=== PATIENT | female | born 1990 | race African-American/Black ===

== ENCOUNTER 2016-12-16 15:34 | Emergency (ER) | payer BC, MEDICAID, OTHER ==
[~2016-12-16 15:34] MED LIST: OXYC-360 PO; PREN0.01 PO
--- NOTE | 2016-12-16 16:26 | PD ---
HPI Chief Complaint Pelvic pain, intermittent 1 day 20 weeks and 4 days Date Seen: Dec 16, 2016 Time Seen: 16:15 Travel History International Travel<30 Days: No Contact w/Intl Traveler<30Days: No Known Affected Area: No History of Present Illness HPI Pt is a 26 yo at 20 weeks and 4 days. EDC 05-01-2017. Prior care in [place], has recently moved back to the area and not yet re- established care. Reports brief bilateral low abdominal pain last night. Resolved spontaneously after 1 minute. Pain returned again this afternoon, again resolved after about 1 minute. No abdominalor pelvic pain at this time. No vaginal leaking or bleeding Reports active movements. Weeks Gestation: 20 Para: 1 : 2 History Obstetric History Obstetric History Prior term 6 years ago. Past Surgical History Surgical History: No Previous Surgery Family History Family History: Negative Social History Alcohol Use: No Tobacco Use: No Substance Abuse: No Allergies-Medications (Allergen,Severity, Reaction): Coded Allergies: No Known Allergies (Verified , 06/09/10) Home Meds Reported Medications Oxycodone/Acetaminophen (Percocet) 5 Mg/325 Mg Tab, 1 - 2 TAB PO Q4HPRN, #30 FOR PAIN 06/11/10 Multivit/Min/Fol Ac/Iron/Pren ( Vit ( Plus)) Tab, 1 TAB PO DAILY, #30 06/09/10 Review of Systems Except as stated in HPI: all other systems reviewed are Neg Physical Exam Narrative GENERAL: Well-nourished, well-developed patient. SKIN: Warm and dry. HEAD: Normocephalic and atraumatic. EYES: No scleral icterus. No injection or drainage. ENT: No nasal drainage noted. Mucous membranes pink. Airway patent. NECK: Supple, trachea midline. No JVD. CARDIOVASCULAR: Regular rate and rhythm without murmurs, gallops, or rubs. RESPIRATORY: Breath sounds equal bilaterally. No accessory muscle use. BREASTS: Bilateral exam showed no masses , no retractions, no nipple discharge. ABDOMEN/GI: Abdomen soft, non-tender, bowel sounds present, no rebound, no guarding Gravid to [20] weeks size GENITOURINARY: External Genitalia: intact and normal in appearance BUS glands: [-] Cervix: [firm] Dilatation: [closed] Effacement: [uneffaced] Station: [] Presentation: [-] Membranes: [intact] Uterine Contractions: [none] FHT's: Category: [-] Baseline: [150s] Reactive: [-] Variability: [-] Decels: [-] EXTREMITIES: No cyanosis or edema. BACK: Nontender without obvious deformity. No CVA tenderness. NEUROLOGICAL: Awake and alert. Motor and sensory grossly within normal limits. Five out of 5 muscle strength in all muscle groups. Normal speech. Data Data Vital Signs Reviewed: Yes MDM Interpretation(s) Round ligament pain. UA wnl Plan 20 weeks and 4 days IUP Round ligament pain. Urine SG 1.030 Advised liberal fluids, Tylenol PRN for pain. Diagnosis Diagnosis: Primary Impression: with 20 completed weeks gestation Additional Impression: Round ligament pain Disposition: 01 DISCHARGE HOME Tanner Hernandez MD Dec 16, 2016 16:26
== END 2016-12-16 17:36 | disposition home or self-care (01) ==
LOC: HOBED 15:34
DX: O26.892 Other specified pregnancy related conditions, second trimester (principal); R10.2 Pelvic and perineal pain; Z3A.20 20 weeks gestation of pregnancy
CPT/HCPCS: 99283

== ENCOUNTER → 2017-01-14 | Outpatient (CLI) | payer MEDICAID | LOC: HPND 13:50 | PROVIDERS: ATTEND Obstetrics & Gynecology | DX: O35.1XX0 Maternal care for (suspected) chromosomal abnormality in fetus, not applicable or unspecified (principal) | CPT/HCPCS: 76811 ==

== ENCOUNTER → 2017-02-13 | Outpatient (CLI) | payer MEDICAID | LOC: HPND 12:51 | PROVIDERS: ATTEND Obstetrics & Gynecology | DX: O35.1XX0 Maternal care for (suspected) chromosomal abnormality in fetus, not applicable or unspecified (principal) | CPT/HCPCS: 76816 ==